=== PATIENT | male | born 1940 | race Caucasian/White ===

== ENCOUNTER → 2016-12-02 | Outpatient (CLI) | payer BC ==
--- NOTE | 2016-12-02 15:08 | US ---
Ultrasound and Venous Duplex Doppler Study of Right Lower Extremity History: Chronic right lower extremity edema, history of DVT, Z86.718 COMPARISON: November 11, 2016, June 02, 2016 Technique: High frequency transducer was used for imaging and Doppler study of the veins of the lowe r extremity. Pulsed Doppler and color Doppler were utilized, along with various maneuvers to assess flow in the veins. Findings: There is a prominent lymph node without a fatty hilum in the right inguinal area measuring 2.3 x 0.9 cm. This looks similar to nodes in the left inguinal region in May. 2 other smaller abnor mal nodes are also present in the inguinal region. The deep veins of the lower extremity are normall y compressible between the groin and the upper calf and have normal Doppler waveforms within them. N o venous thrombosis is identified. No superficial phlebitis or King cyst is identified. There is ruben ma in the calf and ankle. Impression: 1. No evidence of deep vein thrombosis in the right lower extremity. 2. Dominant abnormal right inguinal node. This looks similar to an enlarged node in the left inguinal area from May 2016. If clinically indicated the largest node could be sampled under ultrasound jey danfilomena. The left inguinal nodes could be reevaluated by ultrasound to assess for change in size as wel l. In addition, CT of the abdomen and pelvis might be considered to look for adenopathy or mass that might be compromising venous outflow from either leg. Results called to Rojas Barnes MD at 3pm..
== END ==
LOC: BMCIMAGING 14:18
PROVIDERS: ATTEND Internal Medicine
DX: M79.89 Other specified soft tissue disorders (principal); Z86.718 Personal history of other venous thrombosis and embolism

== ENCOUNTER → 2016-12-12 | Outpatient (CLI) | payer BC ==
[~2016-12-12] MED LIST: IOPAMIDOL (ISOVUE-300) 100 ML BTL IV ONE; LIDOCAINE 1% 30 ML SDV ONE; NA BICARBONATE 50 MEQ/50 ML VIAL ONE
[2016-12-12 08:31] LABS: GLOMERULAR FILTRATION RATE > 60
--- NOTE | 2016-12-12 10:39 | US ---
Ultrasound-Guided Right Inguinal Lymph Node Biopsy History: 76-year-old male with bilateral prominent inguinal lymph nodes on ultrasound. PQRS Crosscutting Measure #226: Current tobacco user: Yes . The patient was counseled on smoking cess ation and advised to discuss with his primary care provider. Comparison: Lower extremity ultrasound December 02, 2016, CT abdomen pelvis December 12, 2016 at 0853 h ours. Procedure: Prior to the procedure, the risks, benefits, and alternatives were discussed with the pat ient and informed written consent was obtained. A preprocedure ultrasound demonstrated prominent ingu inal lymph nodes, including a dominant right inguinal lymph node. A time out was performed. An overl carlo area of skin overlying the right inguinal node was marked, cleaned with Chloraprep and sterilely draped. The skin and soft tissues were anesthetized with buffered 1% lidocaine. A 17-gauge coaxial n eedle was advanced to the margin of the node under ultrasound visualization using sterile gel and a s terile probe cover. 6 core biopsies were obtained and sent to pathology. 2 samples were placed in Cook nk's solution for flow cytometry if necessary. The coaxial needle was removed and hemostasis was obta ined with manual pressure. A bandage was placed. The patient tolerated the procedure well. Impression: Ultrasound-guided right inguinal lymph node biopsy as above.
--- NOTE | 2016-12-12 10:39 | CT ---
CT Abdomen and Pelvis History: Prominent inguinal node on ultrasound, history of chronic right lower extremity edema. Comparison: Lower extremity ultrasound December 02, 2016, CT angio chest April 27, 2015, lower extremit y ultrasound May 21, 2011. Technique: Axial contrast-enhanced images were obtained through the abdomen and pelvis following the uneventful administration of oral and 90 mL Isovue-300 intravenous contrast. Dose reduction technique s were utilized. Creatinine is 1.0. Findings: Abdomen: There is mild basilar scarring/atelectasis. Pacemaker leads are noted in the right atrium an d ventricle. Coronary artery atherosclerosis is present. The liver, gallbladder, spleen, and adrenals are normal. The pancreas is atrophic. Prominent extraren al pelves are present without alfredo hydronephrosis. No filling defects are identified in the opacifie d portions of the collecting systems or ureters on delayed imaging. A subcentimeter hypodensity in th e posterior left kidney is too small to characterize, statistically likely to represent a cyst. There is moderate diverticulosis in the distal colon without evidence of diverticulitis. Moderate sto ol is present in the distal colon. The colon and small bowel are normal caliber. The appendix is norm al. There is no free air. A small fat-containing paraumbilical hernia is present. Mild atherosclerosis is present in a normal caliber aorta. The IVC, portal, splenic, and superior mes enteric veins are patent. Scattered mildly prominent mesenteric and retroperitoneal lymph nodes are p resent without pathologic enlargement. There is nonspecific misting of mesentery in the central abdom en. Contiguous osteophytes in the lower thoracic spine are compatible with DISH. No aggressive osseou s lesions are present. Pelvis: There is indentation in the base of the bladder by the patient's enlarged prostate. A small l eft posterolateral bladder diverticulum is noted. The prostate measures 5.5 cm. Scattered mildly enla rged iliac and inguinal lymph nodes are present, including a reference 1.2 x 1.1 cm right inguinal no de (series 4 image 293). Partial fusion of the sacroiliac joints is noted. No aggressive osseous lesi ons are identified. Impression: 1. Nonspecific mildly prominent inguinal lymph nodes. The patient subsequently underwent right inguin al lymph node biopsy. 2. No other significant adenopathy in the abdomen. Nonspecific mild misting of the abdominal mesenter y, which can be seen with mesenteric inflammation, hypoproteinemia, and multiple other etiologies. 3. Fusion of the sacroiliac joints. This can be seen in patients with inflammatory bowel disease, ank ylosing spondylitis, and other etiologies. 4. Diverticulosis without evidence of diverticulitis. 5. Fat-containing paraumbilical hernia. 6. Additional findings as above.
[2016-12-16 11:37] LABS: FINAL DIAGNOSIS See Comments (()); MICROSCOPIC DESCRIPTION See Comments (()); SPECIAL STUDIES See Comments (())
== END ==
LOC: FIMAGING 07:39
PROVIDERS: ATTEND Internal Medicine
PROC: 07B Lymphatic and Hemic Systems, Excision (ICD-10-PCS; principal; 2016-12-12)
DX: R59.1 Generalized enlarged lymph nodes (principal); K57.30 Diverticulosis of large intestine without perforation or abscess without bleeding; F17.200 Nicotine dependence, unspecified, uncomplicated; Z87.2 Personal history of diseases of the skin and subcutaneous tissue
CPT/HCPCS: 85060-90; 88184-90; 88185-91; Q9967

== ENCOUNTER → 2016-12-24 | Outpatient (CLI) | payer BC ==
--- NOTE | 2016-12-24 17:31 | DX ---
Right Foot , Three History:Pain, history of gout Comparison: March 06, 2011. Findings: There is a subacute oblique fracture coursing through the distal shaft of the fifth metatar kaden. There is periosteal new bone forming. The fracture line is slightly indistinct. No radiopaque ca llus is identified. Severe hallux valgus with lateral angulation of approximately 40 degrees is again present. Soft tissue swelling of the medial tissues overlying the first metatarsal phalangeal joint is more prominent than previously but without soft tissue calcification. There is increased lucency i n the proximal medial base of the proximal phalanx of the great toe, that may represent a degenerativ e geode or erosion. There is moderate degenerative narrowing of the first metatarsal phalangeal joint that has mildly progressed. There is atherosclerotic calcification of the tibialis anterior artery. Impression: Subacute healing fracture of the fifth metatarsal 2. Soft tissue swelling medial to the first metatarsal phalangeal joint without calcified tophus 3. Progressive degenerative change involving the first metatarsal phalangeal joint. Geode versus eros ion proximal medial base proximal phalanx.
== END ==
LOC: BMCIMAGING 13:50
PROVIDERS: ATTEND Podiatrist Foot & Ankle Surgery
DX: M84.477A Pathological fracture, right toe(s), initial encounter for fracture (principal)

== ENCOUNTER → 2017-10-18 | Outpatient (CLI) | payer BC | LOC: BMCIMAGING 09:49 | PROVIDERS: ATTEND Emergency Medicine | DX: M19.022 Primary osteoarthritis, left elbow (principal); M79.89 Other specified soft tissue disorders ==

== ENCOUNTER 2018-05-11 11:34 | Day surgery (SDC) | payer BC ==
[2018-05-11] MEDS ORDERED: LR 1,000 ML IV ONE (12:15)
[2018-05-11] MEDS ORDERED: LIDO/EPI 1% **for epidural** 30 ML SDV ONE (12:27)
[2018-05-11] MEDS ORDERED: BUPIVACAINE/EPI 0.5% 30 ML SDV ONE (12:27)
--- NOTE | 2018-05-11 13:14 | PDHPUP ---
History & Physical Update H&P update statement: This history and physical update is based on an assessment of the patient which was completed after admission or registration (within 24 hours), but prior to the surgery/procedure. H&P update: H&P reviewed & patient examined, no change in patient's condition since H&P completed
--- NOTE | 2018-05-11 13:15 | POSTOPPROG ---
Post Op Note Date of Operation: 05/11/18 Surgeon: Feliz Mares Pipeline Integrity Engineer: Ashley Dawson Anesthesiologist: Reyes Hayes Anesthesia: IV Sedation Pre-op Diagnosis: Umbilical hernia Post-op Diagnosis: Same Procedure: Umbilical hernia repair with 1.7" Ventralux Inf/Abcess present in the surg proc area at time of surgery?: No EBL: Minimal Complications: no immediate
[2018-05-11] MEDS ORDERED: MIDAZOLAM 2 MG/2 ML VIAL ONE (14:41)
[2018-05-11] MEDS ORDERED: MIDAZOLAM 2 MG/2 ML VIAL IVP ONE (14:43)
--- NOTE | 2018-05-11 14:45 | PDANEPAE ---
ANE History of Present Illness umbilical hernia repair ANE Past Medical History - Cardiovascular History Hx Hypertension: No Hx Arrhythmias: No Hx Chest Pain: No Hx Coronary Artery / Peripheral Vascular Disease: Yes Hx CHF / Valvular Disease: No Hx Palpitations: No Cardiovascular History Comment: ON LASIX/K+ FOR EDEMA IN LEGS.NO SYMPTOMS W/ CAD. [employer]OT[employer] PACEMAKER. - Pulmonary History Hx COPD: No Hx Asthma/Reactive Airway Disease: No Hx Recent Upper Respiratory Infection: No Hx Oxygen in Use at Home: No Hx Sleep Apnea: No Sleep Apnea Screening Result - Last Documented: Negative Pulmonary History Comment: PNEUMONIA ~ - Neurologic History Hx Cerebrovascular Accident: No Hx Seizures: No Hx Dementia: No - Endocrine History Hx Diabetes: No - Renal History Hx Renal Disorders: Yes Renal History Comment: NOCTURIA X2- ON 3 RX FOR BLADDER CONTROL - Liver History Hx Hepatic Disorders: No - Neurological & Psychiatric Hx Hx Neurological and Psychiatric Disorders: No - Cancer History Hx Cancer: No - Congenital Disorder History Hx Congenital Disorders: No - GI History Hx Gastrointestinal Disorders: Yes Gastrointestinal History Comment: UMBILICAL HERNIA - Other Health History Other Health History: OA KNEE PAIN-COMES AND GOES. - Chronic Pain History Chronic Pain: No - Surgical History Prior Surgeries: PACEMAKER INSERTION;. STENT PLACED ~. INGUINAL HERNIA; ANE Review of Systems Review of systems is: negative Review of Systems: - Exercise capacity METS (RN): 4 METS - Pacemaker Pacemaker Type: Permanent Pacer/Defib Pacemaker Dynamic Balancer: [employer] Date Pacemaker Last Checked: 02-16-18 ANE Patient History - Allergies Allergies/Adverse Reactions: Penicillins Allergy (Verified 04/21/18 14:15) Unknown - Home Medications Home medications: home medication list seen and reviewed Home Medications: Aspirin EC [Aspirin EC 325 mg (*)] 325 mg PO DAILY 04/27/15 [Last Taken 1 Week Ago ~05/04/18] Atorvastatin Calcium [Lipitor 40 mg (*)] 40 mg PO DAILY 04/27/15 [Last Taken 1 Week Ago ~05/04/18] Furosemide [Lasix 20 MG (*)] 20 mg PO 04/27/15 [Last Taken 1 Week Ago ~05/04/18] Herbals/Supplements -Info Only 1 ea PO 04/27/15 [Last Taken 1 Week Ago ~05/04/18 ] Lisinopril [Zestril 2.5 mg (*)] 2.5 mg PO 04/27/15 [Last Taken 1 Week Ago ~05/04] Potassium Cl [Klor-Con 20 meq (*)] 20 meq PO 04/27/15 [Last Taken 1 Week Ago ~] Silodosin [RAPAFLO] 8 mg PO DAILY 04/27/15 [Last Taken 1 Week Ago ~05/04/18] Solifenacin Succinate [Vesicare 5 MG (*)] 10 mg PO DAILY8 04/27/15 [Last Taken Unknown] Tolterodine Tartrate 04/21/18 [Last Taken 1 Week Ago ~05/04/18] - NPO status NPO Status: no food or drink >8 hours NPO Since - Liquids (Date): 05/10/18 NPO Since - Liquids (Time): 21:30 NPO Since - Solids (Date): 05/10/18 NPO Since - Solids (Time): 18:00 - Anes Hx Anes Hx: no prior problems - Smoking Hx Smoking Status: Never smoked - Family Anes Hx Family Anes Hx: none ANE Labs/Vital Signs - Vital Signs Vital Signs: reviewed preoperatively; see RN documention for details Blood Pressure: 162/92 Heart Rate: 68 Respiratory Rate: 18 O2 Sat (%): 94 Height: 180.34 cm Weight: 83.915 kg ANE Physical Exam - Airway Neck exam: FROM Mallampati Score: Class 2 Mouth exam: normal dental/mouth exam - Pulmonary Pulmonary: no respiratory distress - Cardiovascular Cardiovascular: regular rate and rhythym - ASA Status ASA Status: III ANE Anesthesia Plan Total IV Anesthesia: Yes
[2018-05-11] MEDS ORDERED: PROPOFOL 200 MG/20 ML VIAL ONE ×2 (14:52→15:23)
[2018-05-11] MEDS ORDERED: LIDOCAINE 2% 100 MG/5 ML SYR ONE (14:52)
[2018-05-11] MEDS ORDERED: oxyCODONE IR 5 MG TAB PO PRN (15:26)
[2018-05-11] MEDS ORDERED: ACETAMINOPHEN 500 MG TAB PO PRN (15:26)
[2018-05-11] MEDS ORDERED: PROMETHAZINE HCL 25 MG/ML INJ IVP PRN (15:26)
[2018-05-11] MEDS ORDERED: NALOXONE HCL 0.4 MG/ML INJ IVP PRN (15:26)
[2018-05-11] MEDS ORDERED: ONDANSETRON 4 MG/2 ML VIAL IVP PRN (15:26)
[2018-05-11] MEDS ORDERED: HYDROmorphONE/DILAUDID 1 MG/ML INJ IVP PRN (15:26)
[2018-05-11] MEDS ORDERED: LABETALOL HCL 5 MG/ML 20 ML MDV IVP PRN (15:26)
[2018-05-11] MEDS ORDERED: HYDROCODONE/APAP 5/325 TAB PO PRN (15:26)
[2018-05-11] MEDS ORDERED: fentaNYL 100 MCG/2 ML INJ IVP PRN (15:26)
[2018-05-11] MEDS ORDERED: DEXAMETHASONE 4 MG/ML VIAL IVP PRN (15:26)
[2018-05-11] MEDS ORDERED: MEPERIDINE 25 MG/0.5 ML AMP IVP PRN (15:26)
--- NOTE | 2018-05-11 15:26 | POSTANESTH ---
Post Anesthetic Evaluation Cardiovascular Status: Similar to Pre-Op Cond Respiratory Status: Normal, Stable, Similar to Pre-op Cond. Level of Consciousness/Mental Status: Can Participate in Eval, Mildly Sleepy, Arousable Pain Control: Adequate, Prn Tx Ordered Nausea/Vomiting Control: Adequate, Prn Tx Ordered Complications Possibly Related to Anesthesia: None Noted
--- NOTE | 2018-05-11 15:56 | GOP ---
[f rep st] OPERATIVE REPORT DATE OF OPERATION: 05/11/2018 SURGEON: Feliz Mares MD BIOSTATISTICS PROFESSOR: Ashley Dawson PA-C. ANESTHESIA: MAC, Dr. Hayes. PREOPERATIVE DIAGNOSIS: Umbilical hernia. POSTOPERATIVE DIAGNOSIS: Umbilical hernia. PROCEDURE PERFORMED: Umbilical herniorrhaphy with 1.7 inch Ventralex mesh. FINDINGS: See below. INDICATIONS: 77-year-old male with a symptomatic umbilical hernia. He is undergoing surgical repair at this time. Risks and benefits were explained of bleeding, infection, recurrence as well as bowel injury. All questions were answered. He desires to proceed. A surgical oncologist is standard and necessary and customary for the safe performance of this procedure. DESCRIPTION OF PROCEDURE: After monitored anesthesia was started, the abdomen was pre-injected with 0.5% Marcaine with epinephrine as well as 1% lidocaine. A curvilinear supraumbilical incision was created. The large incarcerated omental fat was dissected back toward its fascial expansion. The sac and fat were transected at the level of the hernial opening which was approximately 2.5 cm in diameter. The fascia was notably attenuated at this location. The underside of the abdominal wall was completely cleared back to healthy- appearing fascial edges. A 1.7 inches Ventralex mesh was inserted in the abdominal cavity. The defect was closed transversely with a running Vicryl suture incorporating the mesh into the closure. Satisfactory hemostasis was assured. The wound was closed in layers with absorbable sutures followed by Dermabond. The patient was taken to Recovery uneventfully. /[id number]/MODL MTDD
[2018-05-11 17:11] VITALS: BP 135/79
== END 2018-05-11 17:13 | disposition home or self-care (01) ==
LOC: FSGY 11:34
PROVIDERS: ATTEND Surgery
PROC: 0WUF0JZ Supplement Abdominal Wall with Synthetic Substitute, Open Approach (ICD-10-PCS; principal; 2018-05-11 13:00)
DX: K42.0 Umbilical hernia with obstruction, without gangrene (principal); Z95.5 Presence of coronary angioplasty implant and graft; Z95.0 Presence of cardiac pacemaker; Z88.0 Allergy status to penicillin
CPT/HCPCS: C1781; J2001; J2250; J2704

== ENCOUNTER → 2018-05-25 | Outpatient (CLI) | payer BC | LOC: FIMAGING 16:00 | PROVIDERS: ATTEND Internal Medicine | DX: M25.461 Effusion, right knee (principal); M79.604 Pain in right leg ==

== ENCOUNTER → 2018-07-20 | Outpatient (CLI) | payer BC | LOC: BMCIMAGING 10:59 | PROVIDERS: ATTEND Emergency Medicine | DX: M25.561 Pain in right knee (principal) ==

== ENCOUNTER → 2018-09-09 | Outpatient (CLI) | payer BC | LOC: BMCIMAGING 13:21 | PROVIDERS: ATTEND Internal Medicine | DX: I70.8 Atherosclerosis of other arteries (principal) ==